=== PATIENT | male | born 1955 | race Native Hawaiian/Other Pacific Islander ===

== ENCOUNTER 2018-08-22 07:38 | Day surgery (SDC) | payer OTHER ==
[2018-08-21 13:55] VITALS: BMI 25.8
[2018-08-22] MEDS ORDERED: Propofol 10 mg/ml Inj (20 ML) ONE (09:12)
--- NOTE | 2018-08-22 11:35 | CP.SDSHP ---
Same Day Surgery H & P - History Proposed Procedure: colonoscopy Pre-Op Diagnosis: polyp surveilance - Previous Medical/Surgical History Cardiac: Hypertension - Allergies Allergies: Allergies No Known Allergies Allergy (Verified 08/22/18 08:22) - Physical Exam Vital Signs: Vital Signs 08/22/18 08:15 Temperature 97.8 F Pulse Rate 88 Respiratory 20 Rate Blood Pressure 136/83 O2 Sat by Pulse 97 Oximetry Mental Status: Alert & Oriented x3 Neuro: WNL Heart: WNL Lungs: WNL GI: WNL - {Optional Preform as Required} Abdomen: WNL - Impression Impression: polyp Pt. Evaluated Today:Candidate for Anesthesia & Procedure: Yes - Date & Time Date: 08/22/18 Time: 11:25 Short Stay Discharge - Short Stay Discharge Admitting Diagnosis/Reason for Visit: COLONIC POLYPS Disposition: HOME/ ROUTINE
[2018-08-22 12:16] VITALS: TEMP 98.4
[2018-08-22 14:24] VITALS: BP 96/60; PULSE 77; RESP 16; O2SAT 99
== END 2018-08-22 13:40 | disposition home or self-care (01) ==
LOC: C.ENDO 07:38
PROVIDERS: ATTEND Internal Medicine Gastroenterology
DX: K63.5 Polyp of colon (principal); I10 Essential (primary) hypertension; Z86.010 Personal history of colon polyps; K57.30 Diverticulosis of large intestine without perforation or abscess without bleeding; K64.1 Second degree hemorrhoids
CPT/HCPCS: 45380; 88305; J2001; J2704